=== PATIENT | male | born 1980 | race Caucasian/White ===

== ENCOUNTER 2021-09-08 02:52 | Emergency (ER) | payer SELFPAY ==
[~2021-09-08] VITALS: Ht 182.9 cm; Wt 114.6 kg
[~2021-09-08 02:52] MED LIST: CETI10TA74 PO; OXYC1TAB15 PO
--- NOTE | 2021-09-08 03:01 | PHYS DOC ---
General Adult HPI: HPI: ".. I decided to not listen to my dentist.. and now the whole Lt side of my face has swelled up.. I called to get back into the dentist .. but they will not see me until I am on antibiotics and some the swelling gone down.. " Patient is a 41 year old male who presents with above hx and complaints of dental pain. Pt. has multiple dental carries, gingivitis and marked with facial swelling. Pain is located primarily through teeth 17 through 23. No Trismuss. Patient does have adenopathy on left angle of mandible and upper cervical chain. Patient denies any history immunosuppression. 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 Patient denies any travel. No specific ill contacts. No history of trauma. Review of Systems: Review of Systems: Constitutional: Subjective complaints of fever Eyes: Denies change in visual acuity HENT: Denies nasal congestion or sore throat. Complains of marked dental pain particular and left lower mandible. Has facials swelling on left side of face. Respiratory: Denies cough or shortness of breath Cardiovascular: Denies chest pain or edema GI: Denies abdominal pain, nausea, vomiting, bloody stools or diarrhea : Denies dysuria Musculoskeletal: Denies back pain or joint pain Integument: Denies rash Neurologic: Denies headache, focal weakness or sensory changes Endocrine: Denies polyuria or polydipsia Lymphatic: Denies swollen glands Psychiatric: Denies depression or anxiety Family History: Family History: Noncontributory the presentation Current Medications: Current Meds: See nursing for home meds Allergies: Allergies: Allergies Coded Allergies Type Severity Reaction Last Updated Verified No Known Drug Allergies 08/26/15 No Physical Exam: PE: Constitutional: In acute distress, non-toxic appearance. [] HENT: Normocephalic, atraumatic, bilateral external ears normal, oropharynx moist, no oral exudates, nose normal. Entire left side of face is swollen. Multiple areas of dental decay. Teeth in area 17 through 22 are decayed and very tender to percussion. Does have adenopathy at angle of mandible. Eyes: PERRLA, EOMI, conjunctiva normal, no discharge. [] Neck: Normal range of motion, no tenderness, supple, no stridor. Upper left neck adenopathy Cardiovascular:Heart rate regular rhythm, no murmur [] Lungs & Thorax: Bilateral breath sounds equal apex with few scattered wheezes on auscultation [] Abdomen: Bowel sounds normal, soft, no tenderness, no masses, no pulsatile nadia s. [] Skin: Warm, dry, no erythema, no rash. [] Back: No tenderness, no CVA tenderness. [] Extremities: No tenderness, no cyanosis, no clubbing, ROM intact, no edema. [] Neurologic: Alert and oriented X 3, normal motor function, normal sensory function, no focal deficits noted. [] Psychologic: Affect anxious, judgement normal, mood normal. [] EKG: EKG: [] Radiology/Procedures: Radiology/Procedures: [] Heart Score: C/O Chest Pain: N/A Risk Factors: Risk Factors: DM, Current or recent (<one month) smoker, HTN, HLP, family history of CAD, obesity. Risk Scores: Score 0 - 3: 2.5% MACE over next 6 weeks - Discharge Home Score 4 - 6: 20.3% MACE over next 6 weeks - Admit for Clinical Observation Score 7 - 10: 72.7% MACE over next 6 weeks - Early Invasive Strategies Course & Med Decision Making: Course & Med Decision Making Pertinent Labs and Imaging studies reviewed. (See chart for details) Patient keep follow-up with dentist. And/or oral surgeon. Take Keflex 500 mg 3 times a day. Take Tylenol and ibuprofen for pain. Follow-up primary care. Impression; 1. Multiple dental caries and gingivitis 2. Left facial cellulitis and edema from dental infection 3. History of testicle cancer . [] Melecio Disclaimer: Melecio Disclaimer: This electronic medical record was generated, in whole or in part, using a voice recognition dictation system. Departure Departure: Referrals: PCP,NO (PCP) Scripts Cephalexin (KEFLEX) 500 Mg Capsule 500 MG PO TID for dental infection for 14 Days, #42 CAP Prov: DOMINIQUE PURCELL MD 09/08/21 Melecio Disclaimer This chart was dictated in whole or in part using Voice Recognition software in a busy, high-work load, and often noisy Emergency Department environment. It may contain unintended and wholly unrecognized errors or omissions. DOMINIQUE PURCELL MD Sep 08, 2021 03:01
[2021-09-08] MEDS ORDERED: CEPH500C PO (03:29)
[2021-09-08] MEDS ORDERED: LIDOCAINE 1% Multi-Dose 20 ML VIAL. ONE (03:53)
[2021-09-08] MEDS: KETOROLAC 60 MG/2 ML VIAL. IM ONE (04:00)
[2021-09-08] MEDS: cefTRIAXone IM 1 GM VIAL IM ONE (04:01)
[2021-09-08 04:07] VITALS: BP 117/100
== END 2021-09-08 03:48 | disposition home or self-care (01) ==
LOC: ER 02:52
DX: L03.211 Cellulitis of face (principal); K02.9 Dental caries, unspecified
CPT/HCPCS: 96372; 99284; J0696; J1885